=== PATIENT | male | born 1985 | race Caucasian/White ===

== ENCOUNTER 2016-09-03 13:04 | Emergency (ER) | payer BC ==
[2016-09-03 13:10] VITALS: BP 120/70; PULSE 91; RESP 20; TEMP 98.1
--- NOTE | 2016-09-03 14:01 | ED ---
General Adult HPI - General Chief complaint: Skin/Abscess/Foreign Body Stated complaint: Leg Bleed Time Seen by Provider: 09/03/16 13:22 Source: patient, RN notes reviewed, old records reviewed Mode of arrival: wheelchair Limitations: no limitations - History of Present Illness Initial comments: This is a 30-year-old male out of the ER for evaluation. Patient presenting for evaluate bleeding varicose vein, patient has history of varicosities across his varicose veins, so pressure building up his left leg and mild bleeding recently, he went to examine it today and it opened up and started squirting blood. Patient is not on blood thinners, no prior history of similar issue. No other significant trauma. - Related Data Home Medications Medication Instructions Recorded Confirmed Multivitamins, Thera [Multivitamin 1 tab PO DAILY 09/03/16 09/03/16 (formulary)] Allergies Allergy/AdvReac Type Severity Reaction Status Date / Time No Known Allergies Allergy Verified 09/03/16 13:29 Review of Systems ROS Statement: Those systems with pertinent positive or pertinent negative responses have been documented in the HPI. ROS Other: All systems not noted in ROS Statement are negative. Past Medical History Past Medical History: No Reported History History of Any Multi-Drug Resistant Organisms: None Reported Additional Past Surgical History / Comment(s): left bunionectomy Past Psychological History: No Psychological Hx Reported Smoking Status: Never smoker Past Alcohol Use History: None Reported Past Drug Use History: None Reported General Exam - General Exam Comments Initial Comments: Mild bleeding from left lower extremity varicosity Limitations: no limitations General appearance: alert, in no apparent distress Head exam: Present: atraumatic, normocephalic, normal inspection Eye exam: Present: normal appearance, PERRL, EOMI. Absent: scleral icterus, conjunctival injection, periorbital swelling ENT exam: Present: normal exam, mucous membranes moist Neck exam: Present: normal inspection. Absent: tenderness, meningismus, lymphadenopathy Respiratory exam: Present: normal lung sounds bilaterally. Absent: respiratory distress, wheezes, rales, rhonchi, stridor Cardiovascular Exam: Present: regular rate, normal rhythm, normal heart sounds. Absent: systolic murmur, diastolic murmur, rubs, gallop, clicks GI/Abdominal exam: Present: soft, normal bowel sounds. Absent: distended, tenderness, guarding, rebound, rigid Extremities exam: Present: normal inspection, full ROM, normal capillary refill. Absent: tenderness, pedal edema, joint swelling, calf tenderness Back exam: Present: normal inspection Neurological exam: Present: alert, oriented X3, CN II-XII intact Psychiatric exam: Present: normal affect, normal mood Skin exam: Present: warm, dry, intact, normal color. Absent: rash Course Vital Signs 09/03/16 13:07 Temperature 98.1 F Pulse Rate 91 Respiratory 20 Rate Blood Pressure 120/70 O2 Sat by Pulse 97 Oximetry - Reevaluation(s) Reevaluation #1: 09/03/16 13:59 Patient has good results with suture Medical Decision Making - Medical Decision Making 30 meowed ER for evaluation. Patient is tearful evaluation of bleeding varicose vein, this is able to be cauterized with lidocaine and epi, sutured with [id number] suture and patient can be discharged home Disposition Clinical Impression: Bleeding from varicose vein Disposition: HOME SELF-CARE Condition: Good Instructions: Acute Wound Care (ED) Referrals: Tony Márquez DO [Primary Care Provider] - 1-2 days
== END 2016-09-03 14:05 | disposition home or self-care (01) ==
LOC: EC 13:04
DX: I83.892 Varicose veins of left lower extremity with other complications (principal); Z79.899 Other long term (current) drug therapy
CPT/HCPCS: 99283

== ENCOUNTER 2016-11-30 21:33 | Emergency (ER) | payer BC ==
[2016-11-30 21:40] VITALS: BP 138/79; PULSE 90; RESP 16; TEMP 98.3
--- NOTE | 2016-11-30 22:03 | ED ---
General Adult HPI - General Chief complaint: Skin/Abscess/Foreign Body Stated complaint: varicose vein bleeding Time Seen by Provider: 11/30/16 21:44 Source: patient, RN notes reviewed, old records reviewed Mode of arrival: ambulatory Limitations: no limitations - History of Present Illness Initial comments: This is a 30-year-old male presents emergency Department chief complaint bleeding from a left lower leg varicose vein. Patient states that he is not on blood thinners. Patient reports that this has happened before in the same location. Patient states that he has been through mulltiple gauze pads. He reprts he was just standing up when it started to bleed, he does not remember hitting his leg or causing laceration. Patient has had no peripheral paresthesais, denies any light headedness. - Related Data Home Medications Medication Instructions Recorded Confirmed Multivitamins, Thera [Multivitamin 1 tab PO DAILY 09/03/16 09/03/16 (formulary)] Allergies Allergy/AdvReac Type Severity Reaction Status Date / Time No Known Allergies Allergy Verified 11/30/16 21:40 Review of Systems ROS Statement: Those systems with pertinent positive or pertinent negative responses have been documented in the HPI. ROS Other: All systems not noted in ROS Statement are negative. Past Medical History Past Medical History: No Reported History Additional Past Medical History / Comment(s): varicose veins History of Any Multi-Drug Resistant Organisms: None Reported Additional Past Surgical History / Comment(s): left bunionectomy Past Psychological History: No Psychological Hx Reported Smoking Status: Never smoker Past Alcohol Use History: None Reported Past Drug Use History: None Reported General Exam - General Exam Comments Initial Comments: 30 year old obese male, no distress. Limitations: no limitations General appearance: alert, in no apparent distress Head exam: Present: atraumatic, normocephalic, normal inspection Eye exam: Present: normal appearance, PERRL, EOMI. Absent: scleral icterus, conjunctival injection, periorbital swelling ENT exam: Present: normal exam, mucous membranes moist Neck exam: Present: normal inspection. Absent: tenderness, meningismus, lymphadenopathy Respiratory exam: Present: normal lung sounds bilaterally. Absent: respiratory distress, wheezes, rales, rhonchi, stridor Cardiovascular Exam: Present: regular rate, normal rhythm, normal heart sounds. Absent: systolic murmur, diastolic murmur, rubs, gallop, clicks GI/Abdominal exam: Present: soft, normal bowel sounds. Absent: distended, tenderness, guarding, rebound, rigid Extremities exam: Present: normal inspection, full ROM, normal capillary refill , other (pin point area over left lateral lower leg that his bleeding from varicose vein. ). Absent: tenderness, pedal edema, joint swelling, calf tenderness Back exam: Present: normal inspection Neurological exam: Present: alert, oriented X3, CN II-XII intact Psychiatric exam: Present: normal affect, normal mood Skin exam: Present: warm, dry, intact, normal color. Absent: rash Course Vital Signs 11/30/16 21:37 Temperature 98.3 F Pulse Rate 90 Respiratory 16 Rate Blood Pressure 138/79 O2 Sat by Pulse 97 Oximetry Medical Decision Making - Medical Decision Making Patient is a 30 year old male with bleeding from varicose vein. Patient wound is pin point, and bleeding is well controlled with pressure. Patient wound covered with wound seal, and gel foam. Discussed elevating leg above the heart and return to ED if it returns to bleeding. Patient agrees to treatment plan and will comply, return parameters discussed. Disposition Clinical Impression: Bleeding from varicose vein Disposition: HOME SELF-CARE Condition: Good Instructions: Varicose Veins (ED) Additional Instructions: Patient is to keep the leg up and elevated above your heart as much as possible tonight. Do not remove the dressing for the next 24-48 hours. Patient should return to the emergency department if any alarming signs or symptoms occur. Referrals: Tony Márquez DO [Primary Care Provider] - 1-2 days Time of Disposition: 22:35
[2016-11-30] MEDS ORDERED: LIDOCAINE 2%-EPI 1:100,000 20 ML VIAL SQ STA (22:11)
[2016-11-30] MEDS ORDERED: GELATIN SPONGE,ABSORB (SMALL) 1 EACH SPONGE TOPICAL STA (22:13)
--- NOTE | 2016-12-02 05:11 | CDI ---
Dear Alexandra Combs PA-C: Please do addendum Physical Examination and Medical Decision Making. Thank you, Bassem Garcia, [employer]. If you have any questions, please contact [employer] at [phone]. [facility]
== END 2016-11-30 22:41 | disposition home or self-care (01) ==
LOC: EC 21:33
DX: I83.892 Varicose veins of left lower extremity with other complications (principal); E66.9 Obesity, unspecified; Z79.899 Other long term (current) drug therapy; Z68.43 Body mass index [BMI] 50.0-59.9, adult
CPT/HCPCS: 99283

== ENCOUNTER → 2018-02-23 | Outpatient (CLI) | payer OTHER ==
--- NOTE | 2018-02-23 09:21 | MR ---
EXAMINATION TYPE: MR brain wo/w con DATE OF EXAM: 02/23/2018 COMPARISON: NONE HISTORY: Chronic Post Traumatic Headache TECHNIQUE: Multiplanar, multisequence images of the brain and brainstem is performed without and with IV contras t, utilizing 15 mL intravenous Gadavist . FINDINGS: Diffusion weighted images demonstrate no evidence of a recent infarct or other diffusion ab normality. There is no extra-axial fluid collection or significant white matter signal abnormality. The ventricular system and cisternal spaces are normal in size and appearance. The brain volume is age appropriate. T2 Star weighted images show no suspicious intraparenchymal blood product. Midline structures demonstrate normal morphology. The craniocervical junction appears within normal limits. Post contrast images demonstrate no abnormal enhancement. The dural venous sinuses appear pa tent. The visualized sinuses are clear and the globes are intact. IMPRESSION: Unremarkable study.
== END ==
LOC: RADMRIMAIN 07:49
PROVIDERS: ATTEND Psychiatry & Neurology Neurology
DX: G44.321 Chronic post-traumatic headache, intractable (principal)
CPT/HCPCS: 70553; A9585

== ENCOUNTER → 2022-06-20 | Outpatient (CLI) | payer BC ==
--- NOTE | 2022-06-20 22:49 | CT ---
EXAMINATION TYPE: CT abdomen pelvis wo con DATE OF EXAM: 06/20/2022 HISTORY: Calculus of kidney per order. Right lower stomach and upper groin pain per patient for [address] DLP: 1851.20 mGycm. Automated Exposure Control for Dose Reduction was Utilized. TECHNIQUE: CT scan of the abdomen and pelvis is performed without oral or IV contrast. COMPARISON: Ultrasound abdomen January 29, 2016 FINDINGS: Within the limitations of a non-contrast study, the following observations are made. LUNG BASES: No significant abnormality is appreciated. LIVER/GB: Hepatomegaly is redemonstrated. Liver is heterogeneously hypodense consistent with diffuse fatty infiltration. Contracted gallbladder is noted. PANCREAS: No significant abnormality is seen. SPLEEN: Splenomegaly is seen measuring 15.9 cm long axis axial image 34. ADRENALS: No significant abnormality is seen. KIDNEYS: No renal stones or hydronephrosis is seen bilaterally. BOWEL: Few sigmoid colonic diverticula. No CT evidence for acute diverticulitis. No suspicious small or large bowel dilatation. Debris-filled stomach suggests recent meal ingestion. GENITAL ORGANS: No gross abnormality seen. LYMPH NODES: No greater than 1cm abdominal or pelvic lymph nodes are appreciated. Few prominent but s ubcentimeter lymph nodes in the bilateral groin region. OSSEOUS STRUCTURES: No significant abnormality is seen. OTHER: No suspicious right inguinal hernia. IMPRESSION: No renal stones or hydronephrosis is seen bilaterally. No right-sided inguinal hernia. No bowel obstruction. No acute findings. Hepatosplenomegaly with diffuse fatty infiltration of the live r is noted.
== END | disposition home or self-care (01) ==
LOC: RADCTMAIN 18:39
PROVIDERS: ATTEND Family Medicine
DX: N20.0 Calculus of kidney (principal); R16.2 Hepatomegaly with splenomegaly, not elsewhere classified; K76.0 Fatty (change of) liver, not elsewhere classified
CPT/HCPCS: 74176

== ENCOUNTER → 2022-12-24 | Outpatient (CLI) | payer BC ==
--- NOTE | 2022-12-24 11:31 | XR ---
EXAMINATION TYPE: XR lumbar spine 2 or 3V DATE OF EXAM: 12/24/2022 CLINICAL HISTORY: pain TECHNIQUE: Three views of the lumbar spine are submitted. COMPARISON: None. FINDINGS: There are 5 lumbar type vertebral bodies identified. The lumbar spine shows satisfactory alignment w ithout evidence of acute fracture or dislocation. Vertebral body heights are within normal limits. There is severe degenerative disc space narrowing at L5-S1 with facet joint arthropathy. The overlyi ng soft tissue appears unremarkable. IMPRESSION: No acute fracture or dislocation is seen in the lumbar spine. ICD 10 NO FRACTURE, INITIAL EVALUATION
--- NOTE | 2022-12-24 11:32 | XR ---
EXAMINATION TYPE: XR cervical spine limited DATE OF EXAM: 12/24/2022 CLINICAL HISTORY: pain TECHNIQUE: 3 views of the cervical spine are submitted. COMPARISON: None. FINDINGS: There is satisfactory in alignment without evidence of acute fracture or dislocation. The pre-vertebral soft tissue appears within normal limits.Disc spaces are well preserved. The C1-C2 art iculation is unremarkable on the open mouth view. IMPRESSION: No acute fracture or dislocation is seen in the cervical spine.
== END | disposition home or self-care (01) ==
LOC: RADXRMAIN 11:05
PROVIDERS: ATTEND Chiropractor
DX: M54.12 Radiculopathy, cervical region (principal); M54.50 Low back pain, unspecified
CPT/HCPCS: 72040; 72100

== ENCOUNTER 2023-05-06 07:21 | Day surgery (SDC) | payer BC ==
[2023-05-01 12:45] VITALS: BMI 53.1
[~2023-05-06 07:21] MED LIST: LIDOCAINE 1% (10MG/ML) FOR IV START INTRADERMA PRN
[2023-05-06 07:57] VITALS: TEMP 97.4
[2023-05-06 08:01] LABS: Glucose,Whole Blood 104 mg/dL (70-110)
[2023-05-06] MEDS: LACTATED RINGERS 1,000 ML IV SCH (08:01)
[2023-05-06] MEDS ORDERED: PROPOFOL 10 MG/ML 20 ML VIAL IV ONE (08:41)
[2023-05-06] MEDS ORDERED: MIDAZOLAM 2 MG/2 ML VIAL ONE (08:41)
[2023-05-06] MEDS ORDERED: fentaNYL (PF) 50 MCG/ML 2 ML AMP ONE (08:41)
--- NOTE | 2023-05-06 08:49 | P.GSHP ---
History of Present Illness H&P Date: 05/06/23 Chief Complaint: Screening with history of polyps 37-year-old male here for colonoscopy. Patient says he has a history of polyps starting at age 19. Last colonoscopy about 10 years ago. Noticed a small amount of blood when wiping recently. No history of colon cancer in family. Past Medical History Past Medical History: Diabetes Mellitus, Hypertension Additional Past Medical History / Comment(s): varicose veins, HX POLYPS History of Any Multi-Drug Resistant Organisms: None Reported Additional Past Surgical History / Comment(s): left bunionectomy, COLONOSCOPY X 4 Past Anesthesia/Blood Transfusion Reactions: Previous Problems w/ Anesthesia Additional Past Anesthesia/Blood Transfusion Reaction / Comment(s): WAS COMBATIVE WHEN COMING OUT OF ANESTHESIA AFTER LAST COLONOSCOPY Smoking Status: Never smoker - Past Family History Mother Family Medical History: No Reported History Medications and Allergies Home Medications Medication Instructions Recorded Confirmed Type amLODIPine BESYLATE/BENAZEPRIL 1 cap PO DAILY 05/01/23 05/06/23 History [amLODIPine BESYLATE/BENAZEPRIL 5-20 mg] metFORMIN HCL [Glucophage] 500 mg PO BID 05/01/23 05/06/23 History Allergies Allergy/AdvReac Type Severity Reaction Status Date / Time No Known Allergies Allergy Verified 05/06/23 07:43 Surgical - Exam Vital Signs Temp Pulse Resp BP Pulse Ox 97.4 F L 84 16 194/92 95 05/06/23 07:47 05/06/23 07:47 05/06/23 07:47 05/06/23 07:47 05/06/23 07:47 Physical exam: General: Well-developed, well-nourished HEENT: Normocephalic, sclerae nonicteric Abdomen: Nontender, nondistended Extremities: No edema Neuro: Alert and oriented Assessment and Plan (1) Rectal bleeding Narrative/Plan: 37-year-old male with rectal bleeding and history of polyps. Will proceed with colonoscopy at this time. Current Visit: Yes Status: Acute Code(s): K62.5 - HEMORRHAGE OF ANUS AND RECTUM SNOMED Code(s): 94935701
--- NOTE | 2023-05-06 09:01 | P.PCN ---
Date of Procedure: 05/06/23 Procedure(s) Performed: PREOPERATIVE DIAGNOSIS: Rectal bleeding, history of polyps POSTOPERATIVE DIAGNOSIS: Mild diverticulosis PROCEDURE: Colonoscopy ANESTHESIA: MAC SURGEON: John Patel M.D. SPECIMENS: None ENDOSCOPIC PROCEDURE: The patient was placed on the endoscopy table in the left decubitus position. The Olympus colonoscope was inserted into the anus and passed under direct visualization to the base of the cecum. The appendiceal orifice was visualized. From that point the scope was slowly withdrawn inspecting all surfaces carefully. There were no neoplastic inflammatory or polypoid lesions throughout the cecum, ascending, transverse, descending, sigmoid and rectum. There was mild left-sided diverticulosis noted. Digital rectal examination was normal. The patient was taken to the recovery room in stable condition per anesthesia guidelines. RECOMMENDATIONS: Resume diet. Repeat colonoscopy 7 to 10 years.
[2023-05-06 09:11] LABS: Glucose,Whole Blood 105 mg/dL (70-110)
[2023-05-06 09:48] VITALS: BP 138/80; PULSE 78; RESP 16
== END 2023-05-06 09:46 | disposition home or self-care (01) ==
LOC: ORWHC2ENDO 07:21
PROVIDERS: ATTEND Surgery
DX: K57.30 Diverticulosis of large intestine without perforation or abscess without bleeding (principal); Z86.010 Personal history of colon polyps; E11.9 Type 2 diabetes mellitus without complications; I10 Essential (primary) hypertension; G47.33 Obstructive sleep apnea (adult) (pediatric); K76.0 Fatty (change of) liver, not elsewhere classified; Z79.84 Long term (current) use of oral hypoglycemic drugs; Z79.899 Other long term (current) drug therapy
CPT/HCPCS: 45378; J2250; J3010; J2704